=== PATIENT | male | born 1980 | race Caucasian/White ===

== ENCOUNTER → 2018-05-27 | Outpatient (REF) | payer OTHER | LOC: M SFHCLERA 17:29 | PROVIDERS: ATTEND Nurse Practitioner Family | DX: R53.81 Other malaise (principal) ==

== ENCOUNTER 2019-02-06 22:09 | Emergency (ER) | payer OTHER ==
[~2019-02-06] VITALS: Ht 182.9 cm; Wt 88.2 kg
[2019-02-06] MEDS ORDERED: ONDANSETRON 4 MG TAB (S0181) PO ONE (23:15)
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
[2019-02-07] VITALS: BP 141/94
[2019-02-07] MEDS ORDERED: KETOROLAC 60 MG/2 ML VIAL (J1885) IM ONE (00:15)
== END 2019-02-07 00:26 | disposition home or self-care (01) ==
LOC: M ED 22:09
DX: S00.93XA Contusion of unspecified part of head, initial encounter (principal); V53.5XXA Driver of pick-up truck or van injured in collision with car, pick-up truck or van in traffic accident, initial encounter; Y92.9 Unspecified place or not applicable; Y93.9 Activity, unspecified; Y99.9 Unspecified external cause status
CPT/HCPCS: 70450; 96372; 99284; J1885